=== PATIENT | male | born 1985 | race American Indian/Alaskan Native ===

== ENCOUNTER 2019-06-05 14:24 | Emergency (ER) | payer SELFPAY ==
[2019-06-05 14:37] VITALS: BP 127/70
--- NOTE | 2019-06-05 14:37 | Event Note ---
ED Screening Note Date of service: 06/05/19 Time: 14:35 ED Screening Note: This is a 33 y.o. M. that presents to the ER with right sided facial swelling and pain from abscess. Patient reports abscess for 1 week with increased swelling over night. This initial assessment/diagnostic orders/clinical plan/treatment(s) is/are subject to change based on patients health status, clinical progression and re- assessment by fellow clinical providers in the ED. Further treatment and workup at subsequent clinical providers discretion. Patient/guardian urged not to elope from the ED as their condition may be serious if not clinically assessed and managed. Initial orders include:
[2019-06-05] MEDS ORDERED: LIDOCAINE (1%) 10 MG/1 ML VIAL 20 ML MDV INFILTRATI ONE (14:51)
[2019-06-05] MEDS ORDERED: TETANUS,DIPHTHERIA TOXOID ADULT 0.5 ML INJ IM ONE (14:51)
[2019-06-05] MEDS ORDERED: IBUPROFEN 600 MG TAB PO ONE (14:51)
[2019-06-05] MEDS ORDERED: SODIUM CHLORIDE 0.9% 1000 ML 1,000 ML IV ONE (14:51)
--- NOTE | 2019-06-05 14:51 | Emergency Department Report ---
Abscess Boil HPI - HPI Chief Complaint: Skin/Abscess/Foreign Body Stated Complaint: ABCESS ON LT SIDE OF FACE Time Seen by Provider: 06/05/19 14:34 Duration: >1 Week Location: Other Severity: Severe History: No Fever, No Pain, No Purulent Drainage, No Numbness, No Foreign Body, No Previous History, No Insect Bite HPI: 33 YO COMES TO ER WITH LARGE LEFT FACIAL ABSCESS. IT HAS BEEN THERE FOR SOME TIME BUT IS GETTING LARGER. Home Medications: Previous Rx's Medication Instructions Recorded Last Taken Type Sulfamethoxazole/Trimethoprim 1 each PO BID #10 tablet 06/05/19 Unknown Rx [Bactrim DS TAB] cephALEXin [Keflex] 500 mg PO Q12HR #20 cap 06/05/19 Unknown Rx Allergies/Adverse Reactions: Allergies Allergy/AdvReac Type Severity Reaction Status Date / Time No Known Allergies Allergy Verified 11/27/14 22:05 ED Review of Systems ROS: Stated complaint: ABCESS ON LT SIDE OF FACE Other details as noted in HPI Comment: All other systems reviewed and negative ED Past Medical Hx - Past Medical History Previous Medical History?: No - Surgical History Past Surgical History?: No - Family History Family history: no significant - Social History Smoking Status: Never Smoker Substance Use Type: None - Medications Home Medications: Home Medications Medication Instructions Recorded Confirmed Last Taken Type Sulfamethoxazole/Trimethoprim 1 each PO BID #10 tablet 06/05/19 Unknown Rx [Bactrim DS TAB] cephALEXin [Keflex] 500 mg PO Q12HR #20 cap 06/05/19 Unknown Rx ED Abscess Boil Physical Exam - Exam General: Vital signs noted. No distress. Alert and acting appropriately. Size: >5 cm Exam: Yes Tenderness, Yes Fluctuance, Yes Surrounding Cellulites/Erythema, Yes Lymphangitis, Yes Heart Murmur, Yes Normal Neurologic Exam, Yes Normal Circulation, No Crepitation I & D Note - I & D Note I & D Note: I/D TO ABSCESS. LIDO 1% TO ANESTHETIZE. BLADE USED TO OPEN. MOD AMOUNT NON ODOROUS THICK DRAINAGE. WOUND PACKED AND CLEANED. DRESSING APPLIED. TOLERATED WELL ED Course Vital Signs 06/05/19 14:36 Temperature 97.3 F L Pulse Rate 103 H Respiratory 18 Rate Blood Pressure 127/70 O2 Sat by Pulse 99 Oximetry Critical care attestation.: If time is entered above; I have spent that time in minutes in the direct care of this critically ill patient, excluding procedure time. ED Medical Decision Making - Lab Data Result diagrams: 06/05/19 14:58 06/05/19 14:58 - Medical Decision Making Labs 06/05/19 06/05/19 14:58 14:58 WBC 8.2 RBC 4.44 Hgb 13.1 Hct 39.1 MCV 88 MCH 30 MCHC 34 RDW 13.7 Plt Count 217 Lymph % (Auto) 23.8 [place] % (Auto) 8.0 H Eos % (Auto) 0.5 Baso % (Auto) 0.5 Lymph # 2.0 [place] # 0.7 Eos # 0.0 Baso # 0.0 Seg Neutrophils % 67.2 Seg Neutrophils # 5.5 Sodium 141 Potassium 4.4 Chloride 104.3 Carbon Dioxide 23 Anion Gap 18 BUN 11 Creatinine 1.0 Estimated GFR > 60 BUN/Creatinine Ratio 11 Glucose 103 H Calcium 9.3 Vital Signs 06/05/19 14:36 Temperature 97.3 F L Pulse Rate 103 H Respiratory 18 Rate Blood Pressure 127/70 O2 Sat by Pulse 99 Oximetry I/D NO TUNNELING ABC INTACT VSS TAKING PO NO LUDWIGS OR POST PHARYN. ABSCESS NS/ANTIBIOTICS PT TO RETURN IN AM FOR RECHECK. ED Disposition Clinical Impression: Abscess Disposition: [id number] TO HOME OR SELFCARE Is pt being admited?: No Does the pt Need Aspirin: No Condition: Stable Instructions: Abscess (ED) Additional Instructions: MEDS ORDERED TODAY COME BACK TOMORROW AND ASK FOR DAVID- WE NEED TO RECHECK THIS WOUND APPLY PRESSURE IF IT BLEEDS DO NOT REMOVE THE PACKING ICE FOR COMFORT TYLENOL FOR PAIN NO ALCOHOL Prescriptions: Sulfamethoxazole/Trimethoprim [Bactrim DS TAB] 1 each PO BID #10 tablet cephALEXin [Keflex] 500 mg PO Q12HR #20 cap Referrals: [facility] [Outside] - 3-5 Days Time of Disposition: 16:17
[2019-06-05] MEDS ORDERED: TETANUS,DIPH,PERTUSS(ACELL) VACCINE 0.5 ML SYRINGE IM ONE (15:02)
[2019-06-05] MEDS ORDERED: AMPICILLIN/SULBACTA 3GM/100ML 3 GM/100 ML BAG IV ONE (15:30)
[2019-06-05 15:41] LABS: Basophils % (Auto) 0.5 % (0.0-1.8); Eosinophils % (Auto) 0.5 % (0.0-4.3); Hematocrit 39.1 % (35.5-45.6); Hemoglobin 13.1 gm/dl (11.8-15.2); Lymphocytes % (Auto) 23.8 % (13.4-35.0); Mean Corpuscular HGB Conc 34 % (32-34); Mean Corpuscular Volume 88 fl (84-94); Monocytes # (Auto) 0.7 K/mm3 (0.0-0.8); Platelet Count 217 K/mm3 (140-440); Red Blood Count 4.44 M/mm3 (3.65-5.03); Red Cell Distribution Width 13.7 % (13.2-15.2)
[2019-06-05 15:42] LABS: BUN/Creatinine Ratio 11; Blood Urea Nitrogen 11 mg/dL (9-20); Calcium 9.3 mg/dL (8.4-10.2); Hemolysis Index 23
== END 2019-06-05 16:52 | disposition home or self-care (01) ==
LOC: ED 14:24
DX: L02.01 Cutaneous abscess of face (principal)
CPT/HCPCS: 10060; 36415; 80048; 85025; 90471; 90715; 96365; 99283; J0295; J7030